=== PATIENT | male | born 1940 | race Caucasian/White ===

== ENCOUNTER 2018-10-26 05:15 | Day surgery (SDC) ==
--- NOTE | 2018-10-20 08:48 | EKG Report ---
Test Performed on : 10/20/2018 08:44:49 AM Test Reason : PAT Blood Pressure : / mmHG Vent. Rate : 055 BPM Atrial Rate : 055 BPM P-R Int : 170 ms QRS Dur : 092 ms QT Int : 434 ms P-R-T Axes : 027 -08 028 degrees QTc Int : 415 ms Sinus bradycardia. Otherwise normal ECG When compared with ECG of 28-AUG-2008 02:32, T wave amplitude has decreased in Anterior leads Confirmed by Shirley DUQUE, Osorio Genao ([id number]) on 10/21/2018 11:59:44 AM
[2018-10-20 09:00] LABS: URINE SOURCE VOIDED
[2018-10-20 09:05] LABS: BASO# 0.04 X1000 (0.0-0.2); BASO% 0.6 % (0.0-0.8); EOS# 0.24 X1000 (0.0-0.7); EOS% 3.8 % (0.0-10.0); HEMOGLOBIN 15.6 g/dL (14.0-18.0); IMM GRAN# 0.02 X1000 (0.0-0.04); IMM GRAN% 0.3 % (0.0-0.5); LYMPH# 2.15 X1000 (1.2-3.4); LYMPH% 33.9 % (20.5-51.1); MCH 28.5 PG (27-31); MCHC 33.9 g/dL (33-37); MCV 84.1 FL (81-99); MONO# 0.56 X1000 (0.11-0.59); MONO% 8.8 % (1.7-9.3); MPV 9.8 FL (7.4-10.4); NEUT# 3.34 X1000 (1.4-6.5); NEUT% 52.6 % (42.2-75.2); PLT 217 X1000 (130-400); RBC 5.47 XMIL (4.7-6.1); RDW 13.7 % (11.5-14.5); WBC 6.35 X1000 (4.8-10.8)
[2018-10-20 09:06] LABS: BILIRUBIN URINE NEGATIVE (NEGATIVE); BLOOD URINE SMALL (NEGATIVE); COLOR YELLOW; GLUCOSE URINE NEGATIVE (NEGATIVE); KETONE URINE NEGATIVE (NEGATIVE); LEUKOCYTES URINE NEGATIVE (NEGATIVE); NITRITE URINE NEGATIVE (NEGATIVE); PROTEIN URINE NEGATIVE (NEGATIVE); SP GRAVITY URINE 1.012; TURBIDITY URINE CLEAR (CLEAR); UR EPITHELIAL CELLS <10 /HPF (<10); URINE BACTERIA NEGATIVE /HPF; URINE RBC <10 /HPF (<10); URINE WBC <10 /HPF (<10); UROBILINOGEN URINE NORMAL (NORMAL)
[2018-10-20 09:34] LABS: ALB/GLOB RATIO 1.6; ALBUMIN 4.1 g/dL (3.5-5.0); CALCIUM 8.9 mg/dL (8.8-10.2); CREATININE 1.2 mg/dL (0.7-1.2); POTASSIUM 4.3 mmol/L (3.5-5.1); TOTAL BILIRUBIN 0.47 mg/dL (0.20-1.00); TOTAL PROTEIN 6.7 g/dL (6.3-8.3)
[2018-10-26] MEDS ORDERED: KEFZOL 1 GM/D5W 1 GM/50 ML IVPB ONE (05:32)
[2018-10-26] MEDS ORDERED: LR 1,000 ML ONE (05:32)
[2018-10-26] MEDS ORDERED: MARCAINE 0.25% PF/EPI 1:200,000 ONE (05:45)
[2018-10-26] MEDS ORDERED: FENTANYL ONE (06:23)
[2018-10-26] MEDS ORDERED: DIPRIVAN 1% ONE (06:23)
[2018-10-26] MEDS ORDERED: QUELICIN (DOSE) ONE (06:24)
[2018-10-26] MEDS ORDERED: XYLOCAINE-MPF 2% ONE (06:24)
[2018-10-26] MEDS ORDERED: ZOFRAN ONE (07:31)
[2018-10-26] MEDS ORDERED: DECADRON ONE (07:31)
[2018-10-26] MEDS ORDERED: ROBINUL ONE (07:31)
[2018-10-26] MEDS: DILAUDID ONE ×3 (08:40→14:57)
[2018-10-26] MEDS ORDERED: NORCO-10 ONE (08:52)
[2018-10-26] MEDS ORDERED: D5 1/2 NS 1,000 ML ONE (08:58)
--- NOTE | 2018-10-26 09:07 | OPERATIVE NOTE ---
PROCEDURE DATE: 10/26/2018 PREOPERATIVE DIAGNOSIS: Left inguinal hernia. POSTOPERATIVE DIAGNOSIS: Left inguinal hernia, indirect type. PROCEDURE PERFORMED: Repair with large mesh plug and overlay with resection of an indirect hernia sac and cord lipoma. DESCRIPTION OF PROCEDURE: The patient was brought to the operating room after satisfactory induction of IV and endotracheal anesthesia, athrombic LISA's and a Millan catheter were placed. His left groin was subsequently prepped and draped in the appropriate manner. A low oblique incision was taken between the anterior superior iliac spine and pubic tubercle with dissection taken down to the external oblique fascia. Hemostasis was obtained by electrocautery. The fascia was incised in the pathway of its fibers down to an opening in the external inguinal ring. The cord structures were subsequently mobilized, and the indirect hernia sac was teased away from the cord structures. There was a loop of sigmoid that was reduced. The leading edge of the hernia sac was subsequently stapled with a TA-30 degrees vascular stapler. A large mesh plug was subsequently tacked to the staple line. Its contents reduced, and sewed to surrounding transversalis and inguinal ligament with 0 Surgilon. The mesh overlay was subsequently placed beneath the cord, but over the plug and likewise sewed with Surgilon. The completion of the reconstructed floor appeared to be satisfactory. The wound was irrigated with 10 mL of Marcaine with epinephrine. The external oblique was subsequently closed with 3-0 Vicryl as was the subcutaneous tissue. Another 10 mL of Marcaine was injected into the subcutaneous. The skin was closed with 4-0 Vicryl subcuticular. Steri-Strips, Telfa, and OpSite were applied. He was awakened and extubated in the operating room. Millan catheter was removed. The is [id number], and he will be admitted for observation to make sure he can pass his water satisfactorily prior to discharge. Estimated Blood Loss was about 10 mL. cc: Jerry Turner MD
[2018-10-26] MEDS ORDERED: MORPHINE IV PRN (11:02)
[2018-10-26] MEDS ORDERED: FLOMAX PO SCH (11:15)
[2018-10-26] MEDS ORDERED: ZOFRAN IV PRN (11:15)
[2018-10-26] MEDS: D5 1/2 NS 1,000 ML IV SCH (12:58)
[2018-10-26] MEDS ORDERED: NITROGLYCERIN SL PRN (14:45)
[2018-10-26] MEDS: NORCO-10 PO PRN (20:45)
[2018-10-26] MEDS ORDERED: ZOCOR PO SCH (21:00)
[2018-10-26] MEDS ORDERED: ASPIRIN PO SCH (21:00)
[2018-10-26] MEDS ORDERED: PRINIVIL PO SCH (21:00)
[2018-10-26] MEDS ORDERED: VITAMIN D PO SCH (21:00)
[2018-10-27] MEDS: D5 1/2 NS 1,000 ML IV SCH (06:59)
[2018-10-27] MEDS: NORCO-10 PO PRN (06:59)
[2018-10-27 07:53] VITALS: BP 106/60
[2018-10-27] MEDS ORDERED: VITAMIN B-12 PO SCH (09:00)
[2018-10-27] MEDS ORDERED: LOPRESSOR PO SCH (09:00)
[2018-10-27] MEDS ORDERED: NORVASC PO SCH (09:00)
== END 2018-10-27 10:07 | disposition home or self-care (01) ==
LOC: SURHOLD 05:15 → OR 05:15 → 4N 08:28 → OR 10-27 10:07
PROVIDERS: ATTEND Surgery
CPT/HCPCS: 80053; 81001; 85025; 88304; 93005; 93010; 94761; 94799; A9270; J0330; J0690; J1100; J1170; J2405; J3010; J7120